=== PATIENT | male | born 1985 | race Caucasian/White ===

== ENCOUNTER 2017-01-26 18:16 | Emergency (ER) | payer BC ==
[~2017-01-26] VITALS: Ht 188 cm; Wt 94.7 kg
[~2017-01-26 18:16] MED LIST: LISINOPRIL-HCT1 EAC3 PO
[2017-01-26 19:02] LABS: HEMATOCRIT 41.2 % (38.0-50.0); MCH 31.2 PG (29.0-34.0); MCHC 33.7 G/DL (30.0-36.0); MCV 92.6 FL (86-99); MEAN PLAT.VOLUME 10.6 uM^3 (9.0-12.4); PLATELET COUNT 338 K/uL (156-360); RBC DIS.WIDTH-CV 12.1 % (11.8-14.6); RBC DIS.WIDTH-SD 41.3 % (39-53); RED BLOOD COUNT 4.45 M/uL (4.00-5.50); WHITE BLOOD COUNT 14.4 K/uL (4.1-10.2)
[2017-01-26 19:12] LABS: ADD MIUA? NO; BILIRUBIN NEGATIVE; BLOOD NEGATIVE; COLOR YELLOW ((YELLOW)); GLUCOSE (STRIP) NEGATIVE; KETONES NEGATIVE; LEUKOCYTES NEGATIVE; NITRITE NEGATIVE; PROTEIN (STRIP) NEGATIVE; SPECIFIC GRAVITY 1.011 (1.000-1.030); UROBILINOGEN 0.2 MG/DL (0.2-1.0)
[2017-01-26 19:13] LABS: CHLORIDE 103 mEq/L (99-109); POTASSIUM 3.9 mEq/L (3.7-5.4); SODIUM 138 mEq/L (136-147)
[2017-01-26 19:15] LABS: GLUCOSE 99 mg/dL (70-99)
[2017-01-26 19:16] LABS: ANION GAP 9 MEQ/L (2-14)
[2017-01-26 19:17] LABS: TOTAL BILIRUBIN 0.3 mg/dL (0.0-1.0)
[2017-01-26 19:18] LABS: ALKALINE PHOSPHATASE 92 IU/L (3-129)
[2017-01-26 19:19] LABS: GFR ESTIMATE (CALCULATED) > 59 mL/min/
[2017-01-26 19:20] LABS: UREA NITROGEN (BUN) 11 mg/dL (9-23)
[2017-01-26 19:22] LABS: LIPASE 27 U/L (1.0-51.0)
[2017-01-26] MEDS ORDERED: CIPRO500 MG PO (19:37)
[2017-01-26] MEDS ORDERED: FLAGYL500 MG PO (19:37)
[2017-01-26] MEDS ORDERED: PERCOCET 5/31 TABLET PO (19:37)
[2017-01-26 20:16] VITALS: BP 142/98
== END 2017-01-26 20:17 | disposition home or self-care (01) ==
LOC: EME 18:16
PROVIDERS: Physician Assistant
DX: K57.32 Diverticulitis of large intestine without perforation or abscess without bleeding (principal); R11.0 Nausea; R30.0 Dysuria; I10 Essential (primary) hypertension
CPT/HCPCS: 74176; 80053; 81003; 83690; 85027; 99281; 99284; J1885